=== PATIENT | male | born 1980 | race Two or more races ===

== ENCOUNTER 2017-12-02 23:08 | Emergency (ER) | payer OTHER ==
[~2017-12-02] VITALS: Ht 170.2 cm; Wt 59.0 kg
[2017-12-02 23:30] VITALS: BP 118/78
--- NOTE | 2017-12-02 23:43 | Emergency Room Report ---
History of Present Illness General Chief Complaint: Medical Clearance Source: Patient Present Illness HPI 37-year-old male, brought in by law enforcement, sustained right finger laceration on dorsal aspect. Patient very agitated and noncooperative. He is oriented 3 however stating that he does not want any medical care. He is clinically sober. Allergies: Coded Allergies: No Known Allergies (Unverified , 09/08/16) Patient History Past Medical History: see triage record Past Surgical History: none Pertinent Family History: none Reviewed Nursing Documentation: PMH: Agreed; PSxH: Agreed Nursing Documentation-PMH Past Medical History Deferred: Pt Cognitively Impaired Review of Systems All Other Systems: negative except mentioned in HPI Physical Exam Vital Signs Date Time Temp Pulse Resp B/P (MAP) Pulse Ox O2 Delivery O2 Flow Rate FiO2 12/02/17 23:13 97.6 145 16 112/89 95 Room Air 97.5 Sp02 EP Interpretation: reviewed, normal General Appearance: alert, GCS 15, moderate distress Head: normocephalic, atraumatic Eyes: bilateral eye normal inspection, bilateral eye PERRL, bilateral eye EOMI ENT: normal ENT inspection, normal pharynx, normal voice, moist mucus membranes Neck: normal inspection, full range of motion, supple Respiratory: normal inspection, lungs clear, normal breath sounds, no respiratory distress, no retraction, no wheezing, speaking full sentences, chest symmetrical Cardiovascular #1: normal inspection, regular rate, rhythm, no edema, normal capillary refill Cardiovascular #2: 2+ radial (R), 2+ radial (L) Gastrointestinal: normal inspection, non tender, soft, non-distended, no guarding Genitourinary: no CVA tenderness Musculoskeletal: other - Right middle finger with small less than 2 cm superficial laceration on dorsal aspect of middle right finger, full range of motion of finger, FDS FDP intact. No active bleeding Neurologic: alert, oriented x3, normal gait Psychiatric: other - agitated Skin: normal inspection, normal color, no rash, warm/dry, well hydrated, normal turgor Medical Decision Making Diagnostic Impression: Primary Impression: Laceration ER Course 37-year-old male brought in by law enforcement for right finger laceration. Patient does not want any medical care. 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 ER course: Patient has remained stable during ED stay. Had a complete conversation with the patient, regards to need for laceration repair, that he will have a scar, and there is also risk for infection, however he is still refusing. He is clinically sober and able to refuse. Disposition: Patient is to be discharged to law enforcement Strict return precautions discussed with patient such as fever, chills, worsening/severe pain, purulent drainage from the wound, chest pain, SOB, nausea , vomiting, which may indicate severe illness. Patient verbalizes understanding and agrees with plan. Please note that this Emergency Department Report was dictated using [employer] consultant technology software, occasionally this can lead to erroneous entry secondary to interpretation by the dictation equipment Last Vital Signs Date Time Temp Pulse Resp B/P (MAP) Pulse Ox O2 Delivery O2 Flow Rate FiO2 12/02/17 23:13 97.6 145 16 112/89 95 Room Air 97.5 Disposition: D/C TO LAW ENFORCEMENT IN [place] Condition: Stable Referrals: [facility],REFERRING (PCP) Departure Forms: Assisted Clearance Patient Instructions: Laceration Care, Adult, [id number] Additional Instructions: You refused medical care to repair your laceration. Please come back to the emergency room if you are having increased redness to the site, purulent drainage. Seda Del Castillo M.D. Dec 02, 2017 23:43
[2017-12-02 23:45] VITALS: BP 118/78
== END 2017-12-02 23:45 ==
LOC: EMR 23:23
DX: S61.212A Laceration without foreign body of right middle finger without damage to nail, initial encounter (principal); X58.XXXA Exposure to other specified factors, initial encounter; Y92.9 Unspecified place or not applicable
CPT/HCPCS: 99283